=== PATIENT | female | born 1975 | race Caucasian/White ===

== ENCOUNTER 2020-05-26 13:49 | Emergency (ER) | payer OTHER, SELFPAY ==
[2020-05-26] VITALS (17 sets, daily range): BP systolic 97–131; BP diastolic 53–69; PULSE 58–82; RESP 11–20; TEMP 36.6–36.8; O2SAT 94–98
--- NOTE | 2020-05-26 13:45 | RT.EKG_ITS ---
APPROVED REPORT Exam: Resting ECG Patient Location: E HR:77 bpm ECG Measurements Heart Rate 77 AXIS MD 143 P 84 QRSd 85 QRS 86 QT 362 T 45 QTc 411 <Conclusion> Sinus rhythm...normal P axis, V-rate 60- 99 I have reviewed and interpreted ECG and agree with software generated interpretation.
--- NOTE | 2020-05-26 14:15 | DI.RAD_ITS ---
EXAM: XR CHEST 2V PA LATERAL CLINICAL HISTORY: Chest pain TECHNIQUE: 2D digital imaging was performed. COMPARISON: No exams were available for comparison FINDINGS: MEDIASTINUM: Normal. HEART: Normal. PULMONARY VASCULATURE: Normal. LUNGS: Clear. PLEURAL SPACE: No pleural effusion or pneumothorax. BONE:Normal. OTHER FINDINGS:Normal. IMPRESSION: No acute pulmonary findings. DATA REPOSITORY: RADIATION DOSE DELIVERED:
--- NOTE | 2020-05-26 14:15 | DI.CT_ITS ---
EXAM: CT BRAIN NECK CTA CLINICAL HISTORY: Left neck pulsating pain, headache, confusion. TECHNIQUE: Imaging Protocol: Axial CT angiography was performed with multi-slice acquisition and mu lti-planar and/or 3D reconstructions. CONTRAST MATERIAL: Intravenous: Omnipaque 350 Contrast volume:structured data in ml COMPARISON: No exams were available for comparison FINDINGS: CT Head W/O: Ventricles and Extra axial spaces: Normal in size and morphology for the patient's age. Hemorrhage: None. Cerebral parenchyma: Normal. Midline shift: None. Brainstem/Cerebellum: Normal. Calvarium: Normal. Visualized Paranasal sinuses/Mastoids: There is a mucous retention cyst or polyp in the left maxillar y sinus. The remaining visualized paranasal sinuses are clear. Soft Tissues: Unremarkable. CTA Brain W: Internal Carotid Arteries: Petrous: Normal. Cavernous: Normal. Cerebral: Normal. Anterior Cerebral Arteries: Right: No aneurysm, occlusion or significant stenosis. Left: No aneurysm, occlusion or significant stenosis. Middle Cerebral Arteries: Right: No aneurysm, occlusion or significant stenosis. Left: No aneurysm, occlusion or significant stenosis. Posterior cerebral Arteries: Right: No aneurysm, occlusion or significant stenosis. Left: No aneurysm, occlusion or significant stenosis. Vertebral Arteries: Right: No aneurysm, occlusion or significant stenosis. Left: No aneurysm, occlusion or significant stenosis. Basilar Artery: No aneurysm, occlusion or significant stenosis. CTA Neck W: Common Carotid: Right: No aneurysm, occlusion or significant stenosis. Left: No aneurysm, occlusion or significant stenosis. External Carotid: Right: No aneurysm, occlusion or significant stenosis. Left: No aneurysm, occlusion or significant stenosis. Internal Carotid: Right: No aneurysm, occlusion or significant stenosis. Left: No aneurysm, occlusion or significant stenosis. Vertebral Artery: Right: No aneurysm, occlusion or significant stenosis. Left: No aneurysm, occlusion or significant stenosis. Lung Apices: Centrilobular emphysematous changes are seen in the lung apices. Dependent atelectasis i s seen. Bones: Normal. Soft Tissues: Normal. IMPRESSION: 1. Normal CTA examination of the [place] [facility] [place]. 2. Unremarkable noncontrast CT Head. 3. Normal CTA examination of the neck. RADIATION DOSE DELIVERED: Total DLP DATA REPOSITORY: All CT scans at this facility are submitted to the National Radiology Data Registry (NRDR) Dose Index Registry (DIR) with the [employer] (A[employer]). RADIATION OPTIMIZATION: All CT scans at this facility use at least one of these dose optimization te chniques: automated exposure control; mA and/or kV adjustment per patient size (includes targeted exa ms where dose is matched to clinical indication); or iterative reconstruction.
[2020-05-26 14:32] LABS: Abs Immature Grans 0.02 k/cumm (0.0-0.09); Absolute Basophil Count 0.02 k/cumm (0.0-0.2); Absolute Lymphocyte Count 2.63 k/cumm (1.2-3.4); Absolute Monocyte Count 0.66 k/cumm (0.11-0.7); Absolute Neutrophil Count 5.25 k/cumm (1.2-6.7); Basophils % 0.2; Eosinophils % 2.3; HCT 40.7 % (36.0-46.0); HGB 13.8 g/dL (12.0-15.5); Immature Grans % 0.2 %; Mean Corp. HGB Concentration 33.9 g/dL (32.0-36.0); Mean Corpuscular Hemoglobin 30.5 pg (27.0-33.0); Mean Platelet Volume 10.3 fL (8.0-11.0); Monocytes % 7.5; Neutrophils % 59.8; Platelet Count 242 x1000/uL (130-400); RBC 4.52 m/cumm (4.00-5.20); RBC Distribution Width 12.5 % (11.7-14.6); White Blood Cell Count 8.78 k/cumm (4.4-10.8)
--- NOTE | 2020-05-26 14:37 | ED.GENADUL_ITS ---
Discharge Plan Disposition Patient Disposition: HOME Condition: Good Discharge Details Chief Complaint: GenMedical Clinical Impression: Acute neck pain, Fatigue, Joint pain Primary Care Provider: Unknown,Unknown ED Provider: Meseret Silvestre Home Meds and New Rx's Prescriptions: No Action No Known Home Meds RF: 0 Discharge Instructions Instructions: Fatigue (ED), Neck Pain (ED) Additional Instructions: Encourage water intake. You may use Tylenol and ibuprofen as needed for discomfort. Warm or cold compresses may also be of benefit. We will contact you with any positive results from your pending tick and Lyme tests. Your imaging and labs were all very reassuring today. I would like you to follow-up closely with your primary care, please call tomorrow to schedule follow-up appointment. If he develops any new or worsening symptoms please seek care urgently once again. Discharge Data Discharge Date/Time-TO BE ENTERED AT DEPARTURE: 05/26/20 18:30 Medical Decision Making <REYNA Monae - Last Filed: 05/27/20 08:02> 45-year-old female with a history of fibromyalgia, PTSD, current smoker, presents with left sided anterior neck pain, throbbing associated with discomfort into her jaw, chest and a global headache. She reports that she feels altered or confused. Denies recent illness or trauma. She appears well, nontoxic. Dentition and throat are unremarkable. Certainly has point tenderness to the location on her neck otherwise her work-up is unremarkable. Very well simply could be a swollen lymph node but given the exquisite tenderness certainly cannot rule out many other etiologies. I did discuss the case with Dr. Childers. Differential is certainly broad at the moment including carotid dissection, intracranial hemorrhage, infectious process, tickborne disease, atypical chest pain, PE, etc. Will initiate a cardiac work-up and obtain CTA head and neck as well as a chest x-ray. Will give 1 L IV fluid. Discussed work-up with patient, she is comfortable with this plan Initial labs have been unremarkable, white count of 8.78 hemoglobin 13.8 hematocrit 40.7 platelet count 242. Coags unremarkable, dimer of 262, electrolytes unremarkable. Creatinine 0.79 with a GFR greater than 60. AST 11 ALT 13 urinalysis and drug screen unremarkable. Troponin and imaging pending Troponin less than 0.05. Imaging still pending. Lab Data Lab results reviewed: Yes I reviewed the patient's lab results. Lab results narrative: Laboratory Tests Range/Units 05/26/20 05/26/20 05/26/20 04:20 14:20 14:20 WBC (4.4-10.8) k/cumm 8.78 RBC (4.00-5.20) m/cumm 4.52 Hgb (12.0-15.5) g/dL 13.8 Hct (36.0-46.0) % 40.7 MCV (80-95) fL 90.0 MCH (27.0-33.0) pg 30.5 MCHC (32.0-36.0) g/dL 33.9 RDW (11.7-14.6) % 12.5 Plt Count (130-400) x1000/uL 242 MPV (8.0-11.0) fL 10.3 Immature Gran % % 0.2 Neutrophils % 59.8 Lymphocytes % 30.0 Monocytes % 7.5 Eosinophils % 2.3 Basophils % 0.2 Absolute Neutrophils (1.2-6.7) k/cumm 5.25 Absolute Lymphocytes (1.2-3.4) k/cumm 2.63 Absolute Monocytes (0.11-0.7) k/cumm 0.66 Absolute Eosinophils (0.0-0.7) k/cumm 0.20 Absolute Basophils (0.0-0.2) k/cumm 0.02 PT (9.3-11.0) sec INR (0.9-1.1) APTT (21.0-31.4) sec D-Dimer (<500) ng/mlFEU Sodium (136-145) mmol/L 139 Potassium (3.5-5.1) mmol/L 3.8 Chloride (98-107) mmol/L 104 Carbon Dioxide (21.0-32.0) mmol/L 27.1 Anion Gap (3-11) mmol/L 7.9 BUN (7-18) mg/dL 16 Creatinine (0.55-1.02) mg/dL 0.79 Estimated GFR/1.73 m2 (mL/min/1.73m2) >= 60.00 Glucose (74-106) mg/dL 106 Calcium (8.5-10.1) mg/dL 9.0 Magnesium (1.8-2.4) mg/dL 2.1 Total Bilirubin (0.2-1.0) mg/dL 0.5 AST (15-37) U/L 11 L ALT (14-59) U/L 13 L Alkaline Phosphatase (46-116) U/L 69 Troponin I (<0.06) ng/mL < 0.05 Total Protein (6.4-8.2) g/dL 7.7 Albumin (3.4-5.0) g/dL 4.0 Lipase (73-393) U/L Urine Color (Yellow) Urine Clarity (Clear) Urine pH (5-8) Ur Specific [place] (1.005-1.025) Urine Protein (Negative) mg/dL Urine Ketones (Negative) mg/dL Urine Blood (Negative) Urine Nitrite (Negative) Urine Bilirubin (Negative) Urine Urobilinogen (Up TO 0.2) EU/dL Ur Leukocyte Esterase (Negative) Urine Glucose (Negative) mg/dL Urine Opiates Screen (Negative) Urine Methadone Screen (Negative) Ur Barbiturates Screen (Negative) Ur Tricyclics Screen (Negative) Ur Amphetamines Screen (Negative) U Benzodiazepines Scrn (Negative) Urine Cocaine Screen (Negative) Ur THC Screen (Negative) Monoscreen (Negative) Negative Range/Units 05/26/20 05/26/20 05/26/20 14:20 14:20 14:50 WBC (4.4-10.8) k/cumm RBC (4.00-5.20) m/cumm Hgb (12.0-15.5) g/dL Hct (36.0-46.0) % MCV (80-95) fL MCH (27.0-33.0) pg MCHC (32.0-36.0) g/dL RDW (11.7-14.6) % Plt Count (130-400) x1000/uL MPV (8.0-11.0) fL Immature Gran % % Neutrophils % Lymphocytes % Monocytes % Eosinophils % Basophils % Absolute Neutrophils (1.2-6.7) k/cumm Absolute Lymphocytes (1.2-3.4) k/cumm Absolute Monocytes (0.11-0.7) k/cumm Absolute Eosinophils (0.0-0.7) k/cumm Absolute Basophils (0.0-0.2) k/cumm PT (9.3-11.0) sec 10.0 INR (0.9-1.1) 1.0 APTT (21.0-31.4) sec 27.2 D-Dimer (<500) ng/mlFEU 262 Sodium (136-145) mmol/L Potassium (3.5-5.1) mmol/L Chloride (98-107) mmol/L Carbon Dioxide (21.0-32.0) mmol/L Anion Gap (3-11) mmol/L BUN (7-18) mg/dL Creatinine (0.55-1.02) mg/dL Estimated GFR/1.73 m2 (mL/min/1.73m2) Glucose (74-106) mg/dL Calcium (8.5-10.1) mg/dL Magnesium (1.8-2.4) mg/dL Total Bilirubin (0.2-1.0) mg/dL AST (15-37) U/L ALT (14-59) U/L Alkaline Phosphatase (46-116) U/L Troponin I (<0.06) ng/mL Total Protein (6.4-8.2) g/dL Albumin (3.4-5.0) g/dL Lipase (73-393) U/L 92 Urine Color (Yellow) Urine Clarity (Clear) Urine pH (5-8) Ur Specific [place] (1.005-1.025) Urine Protein (Negative) mg/dL Urine Ketones (Negative) mg/dL Urine Blood (Negative) Urine Nitrite (Negative) Urine Bilirubin (Negative) Urine Urobilinogen (Up TO 0.2) EU/dL Ur Leukocyte Esterase (Negative) Urine Glucose (Negative) mg/dL Urine Opiates Screen (Negative) Negative Urine Methadone Screen (Negative) Negative Ur Barbiturates Screen (Negative) Negative Ur Tricyclics Screen (Negative) Negative Ur Amphetamines Screen (Negative) Negative U Benzodiazepines Scrn (Negative) Negative Urine Cocaine Screen (Negative) Negative Ur THC Screen (Negative) Negative Monoscreen (Negative) Range/Units 05/26/20 14:50 WBC (4.4-10.8) k/cumm RBC (4.00-5.20) m/cumm Hgb (12.0-15.5) g/dL Hct (36.0-46.0) % MCV (80-95) fL MCH (27.0-33.0) pg MCHC (32.0-36.0) g/dL RDW (11.7-14.6) % Plt Count (130-400) x1000/uL MPV (8.0-11.0) fL Immature Gran % % Neutrophils % Lymphocytes % Monocytes % Eosinophils % Basophils % Absolute Neutrophils (1.2-6.7) k/cumm Absolute Lymphocytes (1.2-3.4) k/cumm Absolute Monocytes (0.11-0.7) k/cumm Absolute Eosinophils (0.0-0.7) k/cumm Absolute Basophils (0.0-0.2) k/cumm PT (9.3-11.0) sec INR (0.9-1.1) APTT (21.0-31.4) sec D-Dimer (<500) ng/mlFEU Sodium (136-145) mmol/L Potassium (3.5-5.1) mmol/L Chloride (98-107) mmol/L Carbon Dioxide (21.0-32.0) mmol/L Anion Gap (3-11) mmol/L BUN (7-18) mg/dL Creatinine (0.55-1.02) mg/dL Estimated GFR/1.73 m2 (mL/min/1.73m2) Glucose (74-106) mg/dL Calcium (8.5-10.1) mg/dL Magnesium (1.8-2.4) mg/dL Total Bilirubin (0.2-1.0) mg/dL AST (15-37) U/L ALT (14-59) U/L Alkaline Phosphatase (46-116) U/L Troponin I (<0.06) ng/mL Total Protein (6.4-8.2) g/dL Albumin (3.4-5.0) g/dL Lipase (73-393) U/L Urine Color (Yellow) Yellow Urine Clarity (Clear) Clear Urine pH (5-8) 6.0 Ur Specific [place] (1.005-1.025) >= 1.030 H Urine Protein (Negative) mg/dL Negative Urine Ketones (Negative) mg/dL Negative Urine Blood (Negative) Negative Urine Nitrite (Negative) Negative Urine Bilirubin (Negative) Negative Urine Urobilinogen (Up TO 0.2) EU/dL 0.2 Ur Leukocyte Esterase (Negative) Negative Urine Glucose (Negative) mg/dL Negative Urine Opiates Screen (Negative) Urine Methadone Screen (Negative) Ur Barbiturates Screen (Negative) Ur Tricyclics Screen (Negative) Ur Amphetamines Screen (Negative) U Benzodiazepines Scrn (Negative) Urine Cocaine Screen (Negative) Ur THC Screen (Negative) Monoscreen (Negative) ECG Data Attestation: I personally reviewed and interpreted this ECG (s) as follows: Interpretation: EKG performed at 1400, reviewed and interpreted with Dr. Childers. Sinus rhythm, ventricular of 77, no STEMI. Please see her official reports <REYNA Sales - Last Filed: 05/26/20 20:30> Care transition myself with imaging and repeat troponin pending. In brief, patient is a 45-year-old female with past medical history significant for fibromyalgia, PTSD and current smoker presenting for evaluation of left-sided n danyell pain. Her initial chief complaint was his neck pain that was throbbing. Patient also reports that she has disseminated joint pain, fatigue, chest pain, headache all that began upon awakening Tuesday morning. Please see his initial note for initial presentation, exam and work-up thus far. Labs completed without significant abnormality. This includes a leukocytosis, stable H&H, no electrolyte abnormalities, normal coags, negative Monospot, normal initial troponin, normal lipase and no abnormalities in the UDS or UA. Tick and Lyme panel pending. CXR reviewed by radiologist: FINDINGS: Lungs: Clear lungs. Pleural space: No pneumothorax. No sizeable effusion. Heart/Mediastinum: Cardiomediastinal silhouette is within normal limits. Bones/joints: No acute displaced fracture or dislocation. IMPRESSION: No acute cardiopulmonary process. CT reviewed by radiologist: FINDINGS: Anterior cerebral arteries are widely patent. Middle cerebral arteries are widely patent. Posterior cerebral arteries are widely patent. No evidence of aneurysm or dissection. Mild carotid siphon calcifications. Basilar artery is widely patent. No evidence of aneurysm or dissection. Right common, internal, and external carotid arteries are widely patent. Left common, external, and internal carotid arteries are widely patent. No evidence of aneurysm or dissection. Left vertebral artery is dominant. The left vertebral artery is widely patent. No evidence of aneurysm or dissection. The right vertebral artery is widely patent. No evidence of aneurysm or dissection. Limited evaluation of the venous structures however major dural venous sinuses as well as both jugular veins appear patent. No acute intracranial hemorrhage, mass, or infarct. Intact globes and orbits. Mucous retention cyst left maxillary sinus. Emphysematous changes both lungs. Periapical scarring. Scattered areas of atelectasis. Note that evaluation of the lung parenchyma is limited secondary to motion. Dental hardware. Visualized vertebral bodies demonstrate normal height and alignment. No acute bony findings identified. Multiple prominent cervical nodes are nonspecific but may be reactive. Impression: Widely patent arterial vasculature without evidence of aneurysm, occlusion, or hemodynamically significant stenosis. No acute intracranial process. FINDINGS: Anterior cerebral arteries are widely patent. Middle cerebral arteries are widely patent. Posterior cerebral arteries are widely patent. No evidence of aneurysm or dissection. Mild carotid siphon calcifications. Basilar artery is widely patent. No evidence of aneurysm or dissection. Right common, internal, and external carotid arteries are widely patent. Left common, external, and internal carotid arteries are widely patent. No evidence of aneurysm or dissection. Left vertebral artery is dominant. The left vertebral artery is widely patent. No evidence of aneurysm or dissection. The right vertebral artery is widely patent. No evidence of aneurysm or dissecti on. Limited evaluation of the venous structures however major dural venous sinuses as well as both jugular veins appear patent. No acute intracranial hemorrhage, mass, or infarct. Intact globes and orbits. Mucous retention cyst left maxillary sinus. Emphysematous changes both lungs. Periapical scarring. Scattered areas of atelectasis. Note that evaluation of the lung parenchyma is limited secondary to motion. Dental hardware. Visualized vertebral bodies demonstrate normal height and alignment. No acute bony findings identified. Multiple prominent cervical nodes are nonspecific but may be reactive. Impression: Widely patent arterial vasculature without evidence of aneurysm, occlusion, or hemodynamically significant stenosis. No acute intracranial process. Discussed this findings with the patient. Patient's repeat troponin less than 0.05. Repeat EKG was by Dr. Childers without change from previous. Patient discussed potential causes of her discomfort. n thus far, her exam has been reas suring. However, her tick and Lyme panel are pending. We will contact her with any positive results. Patient does have a history of fibromyalgia and states that she has had fibromyalgia flareup historically and that that is what this could be as well. She states is been several years since her previous. I did encourage close follow-up with primary care. She will contact them tomorrow to schedule appointment. She was given return precautions. All of her questions and concerns were addressed and she is in agreement this plan. HPI <REYNA Monae - Last Filed: 05/27/20 08:02> General Mode of arrival: ambulatory . Date/Time Provider Initiated Documentation: 05/26/20 13:56 . Limitations to Documentation: no limitations . Information obtained by: patient . HPI Narrative: This is a 45-year-old female who reports a history of PTSD, fibromyalgia, current quarter-half pack cigarettes smoker daily, presents with 2-3-day history of left-sided neck pulsating pressure-pain which is moderate in nature and severe to palpation. She reports a dull global headache slightly worse on the left side and a vague feeling of confusion. She reports left-sided jaw discomfort associated with intermittent lightheadedness. She reports generalized weakness, fatigue, diffuse muscle pain, joint aching, sweats, unknown fever. She reports diffuse m ild left-sided chest pain but denies cough or shortness of breath. She denies recent illness or trauma. Denies posterior neck pain, numbness, tingling, focal weakness, skin rash, abdominal pain, vomiting, dysuria, hematuria, diarrhea or constipation. Does report mild nausea. Related Data Home Medications Medication Instructions Recorded Confirmed Unknown [No Known Home Meds] 05/26/20 05/26/20 Allergies Allergy/AdvReac Type Severity Reaction Status Date / Time No Known Allergies Allergy Unverified 05/26/20 13:56 General Stated Complaint: GenMedical LALITA: 2 Review of Systems <REYNA Monae - Last Filed: 05/27/20 08:02> Constitutional Constitutional: Reports fatigue, Denies fever(s), Reports headache(s) and Reports weakness (Generalized) Eyes Eyes: Denies change in vision ENT Ears, Nose, Mouth, and Throat: Denies otalgia, Reports headache(s), Reports neck pain and Denies sore throat Cardiovascular Cardiovascular: Reports chest pain, Denies palpitations and Denies dyspnea Respiratory Respiratory: Denies cough and Denies dyspnea Gastrointestinal Gastrointestinal: Denies abdominal pain, Reports nausea and Denies vomiting Genitourinary Genitourinary: Denies dysuria Musculoskeletal Musculoskeletal: Denies back pain, Reports myalgias, Reports arthralgias, Reports neck pain, Denies numbness and Denies tingling Integumentary/Breasts Skin/Breast: Denies rash Neurologic Neurologic: Reports headache(s), Denies numbness, Denies tingling and Reports weakness (Generalized) Endocrine Endocrine: Reports fatigue and Denies palpitations Hematologic/Lymphatic Hematologic/Lymphatic: Denies easy bleeding and Denies easy bruising PFSH <REYNA Monae - Last Filed: 05/27/20 08:02> Social History Smoking/Tobacco Use Status: Current every day Tobacco Type: cigarettes Drug use: Never Substance use type: does not use Do you feel safe at home: Yes Do you feel safe in your relationship?: Yes Exam <REYNA Monae - Last Filed: 05/27/20 08:02> Const General: cooperative, healthy appearing, comfortable and no acute distress Orientation: alert, awake and oriented x3 HENMT Head: normal to inspection, no palpable skull fracture, normocephalic and atraumatic Ears: external ears normal, TM's normal bilaterally and EAC's normal General nose exam: external nose normal Face and sinus: normal facial exam Mouth: oral mucosae normal and moist mucous membranes Teeth and gingiva: dentition normal Throat: posterior oropharynx normal Eyes General: appearance normal, both eyes and all related structures Alignment and Position: alignment normal Periorbital: periorbital findings normal Eyelids: eyelids normal Conjunctivae: conjunctivae normal Sclera: sclerae normal Cornea: corneas normal Pupils: PERRL EOM: EOM intact bilaterally Direct ophthalmoscopy: normal light reflex Neck Neck: normal visual inspection, full ROM, no meningeal signs, trachea midline, supple and tender (Left anterior to the sternocleidomastoid, point tenderness) Chest Chest: normal inspection of the chest, no crepitus and tenderness (Left lateral lower ribs diffusely) Resp Effort & Inspection: normal respiratory effort and able to speak in complete sentences Auscultation: clear to auscultation bilaterally Cardio Rate: regular rate Rhythm: regular rhythm GI Inspection: normal to inspection Palpation: soft, not firm, no guarding and nontender Auscultation: normal bowel sounds Back/Spine/Pelvis Back: No back tenderness Skin General skin exam: no rashes or lesions noted Neuro General: patient alert, patient awake, patient oriented x3, moves all extremities and no focal motor deficits Cranial Nerves: CN's II-XI intact bilaterally Cognition: normal cognition Speech: speech normal Gait: normal gait Motor: muscle tone normal throughout and strength 5/5 throughout Sensory Exam: no sensory deficits noted Extrem General: normal to inspection, full ROM, capillary refill normal, no pedal edema and no calf tenderness Psych Appearance: grossly normal Mental Status: mental status grossly normal Course <REYNA Monae - Last Filed: 05/27/20 08:02> Vital Signs Vital signs: Vital Signs Temperature 36.8 C 05/26/20 13:56 Pulse 79 05/26/20 13:56 Respiratory Rate 19 05/26/20 13:56 Blood Pressure 131/65 05/26/20 13:56 Pulse Oximetry 97 05/26/20 13:56 Temperature 36.8 C 05/26/20 13:56 Temperature Source Temporal Artery Scan 05/26/20 13:56 Pulse 79 05/26/20 13:56 Respiratory Rate 18 05/26/20 14:08 Respiratory Effort 05/26/20 14:08 Respiratory Depth Normal 05/26/20 14:08 Blood Pressure 131/65 05/26/20 13:56 Blood Pressure Position Supine 05/26/20 13:56 Pulse Oximetry 97 05/26/20 13:56 Oxygen Delivery Method Room Air 05/26/20 13:56 Oxygen Flow Rate 0 05/26/20 13:56 Pain Level 4 05/26/20 13:56 Lab/Test Results Lab/Test Results: Laboratory Tests Range/Units 05/26/20 14:20 WBC (4.4-10.8) k/cumm 8.78 RBC (4.00-5.20) m/cumm 4.52 Hgb (12.0-15.5) g/dL 13.8 Hct (36.0-46.0) % 40.7 MCV (80-95) fL 90.0 MCH (27.0-33.0) pg 30.5 MCHC (32.0-36.0) g/dL 33.9 RDW (11.7-14.6) % 12.5 Plt Count (130-400) x1000/uL 242 MPV (8.0-11.0) fL 10.3 Immature Gran % % 0.2 Neutrophils % 59.8 Lymphocytes % 30.0 Monocytes % 7.5 Eosinophils % 2.3 Basophils % 0.2 Absolute Neutrophils (1.2-6.7) k/cumm 5.25 Absolute Lymphocytes (1.2-3.4) k/cumm 2.63 Absolute Monocytes (0.11-0.7) k/cumm 0.66 Absolute Eosinophils (0.0-0.7) k/cumm 0.20 Absolute Basophils (0.0-0.2) k/cumm 0.02 Sign Out <REYNA Monae - Last Filed: 05/27/20 08:02> Sign Out Data: Sign Out Comment: Laboratory values thus far unremarkable. Patient is currently at imaging for CTA of head, neck, CT of head, chest x-ray. Will need reevaluation and if initial work-up is unremarkable likely repeat troponin and EKG in 3 hours. May try Toradol if initial work-up is unremarkable to see if we can get any analgesia. Last updated by Mauro Hunt PA at 05/26/20 16:02
[2020-05-26 14:43] LABS: PTT Activated 27.2 sec (21.0-31.4)
[2020-05-26 14:44] LABS: ALT 13 U/L (14-59); AST 11 U/L (15-37); Alkaline Phosphatase 69 U/L (46-116); Anion Gap 7.9 mmol/L (3-11); BUN 16 mg/dL (7-18); Bilirubin, Total 0.5 mg/dL (0.2-1.0); CO2 27.1 mmol/L (21.0-32.0); CREATININE 0.79 mg/dL (0.55-1.02); Chloride 104 mmol/L (98-107); Glucose 106 mg/dL (74-106); Magnesium 2.1 mg/dL (1.8-2.4); Potassium 3.8 mmol/L (3.5-5.1); Sodium 139 mmol/L (136-145); Total Protein 7.7 g/dL (6.4-8.2)
[2020-05-26] MEDS: Normal Saline 1,000 ML 1000 ML IV (14:46)
[2020-05-26 14:47] LABS: Troponin I < 0.05 ng/mL (<0.06)
[2020-05-26 14:59] LABS: D-Dimer 262 ng/mlFEU (<500)
[2020-05-26 15:03] LABS: Bilirubin Negative (Negative); Blood Negative (Negative); Clarity Clear (Clear); Glucose Negative (Negative); Ketones Negative (Negative); Leukocyte Esterase Negative (Negative); Nitrite Negative (Negative); Specific Gravity >= 1.030 (1.005-1.025); Urobilinogen 0.2 EU/dL (Up TO 0.2)
[2020-05-26 15:07] LABS: Lipase 92 U/L (73-393)
[2020-05-26 15:15] LABS: *AMPHETAMINES SCREEN URINE Negative (Negative); *BARBITURATES SCREEN URINE Negative (Negative); *BENZODIAZEPINES SCREEN URINE Negative (Negative); Cannabinoids THC Negative (Negative); Cocaine Screen,Urine Negative (Negative); METHADONE URINE SCREEN Negative (Negative); OPIATES URINE SCREEN Negative (Negative)
[2020-05-26 15:16] LABS: Tricyclic Antidepressants Negative (Negative)
[2020-05-26 15:32] LABS: Mono Screening Negative (Negative)
[2020-05-26] MEDS: Omnipaque 350 MG/ML 100 ML BTL IV (15:57)
--- NOTE | 2020-05-26 16:08 | DI.VRAD_ITS ---
PROCEDURE INFORMATION: Exam: XR Chest, 2 Views Exam date and time: 05/26/2020 3:59 PM Age: 45 years old Clinical indication: Other: Chest pain TECHNIQUE: Imaging protocol: XR of the chest Views: 2 views. COMPARISON: No relevant images were readily available for comparison purposes. FINDINGS: Lungs: Clear lungs. Pleural space: No pneumothorax. No sizeable effusion. Heart/Mediastinum: Cardiomediastinal silhouette is within normal limits. Bones/joints: No acute displaced fracture or dislocation. IMPRESSION: No acute cardiopulmonary process. Dictated and Authenticated by: Srinath Dickey MD. Ordering:LENARD Wade MD
--- NOTE | 2020-05-26 16:43 | DI.VRAD_ITS ---
PROCEDURE INFORMATION: Exam: CT Angiography Head With Contrast Exam date and time: 05/26/2020 3:56 PM Age: 45 years old Clinical indication: Other: Left neck pulsating pain, headache, confusion TECHNIQUE: Imaging protocol: Computed tomography angiography of the head with intravenous contrast. 3D rendering: MIP and/or 3D reconstructed images were created by the technologist. Contrast material: 0MNIPQUE 350; Contrast volume: 85 ml; Contrast route: INTRAVENOUS (IV); COMPARISON: No relevant images were readily available for comparison purposes. FINDINGS: Anterior cerebral arteries are widely patent. Middle cerebral arteries are widely patent. Posterior cerebral arteries are widely patent. No evidence of aneurysm or dissection. Mild carotid siphon calcifications. Basilar artery is widely patent. No evidence of aneurysm or dissection. Right common, internal, and external carotid arteries are widely patent. Left common, external, and internal carotid arteries are widely patent. No evidence of aneurysm or dissection. Left vertebral artery is dominant. The left vertebral artery is widely patent. No evidence of aneurysm or dissection. The right vertebral artery is widely patent. No evidence of aneurysm or dissection. Limited evaluation of the venous structures however major dural venous sinuses as well as both jugular veins appear patent. No acute intracranial hemorrhage, mass, or infarct. Intact globes and orbits. Mucous retention cyst left maxillary sinus. Emphysematous changes both lungs. Periapical scarring. Scattered areas of atelectasis. Note that evaluation of the lung parenchyma is limited secondary to motion. Dental hardware. Visualized vertebral bodies demonstrate normal height and alignment. No acute bony findings identified. Multiple prominent cervical nodes are nonspecific but may be reactive. Impression: Widely patent arterial vasculature without evidence of aneurysm, occlusion, or hemodynamically significant stenosis. No acute intracranial process. PROCEDURE INFORMATION: Exam: CT Angiography Neck With Contrast Exam date and time: 05/26/2020 3:56 PM Age: 45 years old Clinical indication: Other: Left neck pulsating pain, headache, confusion TECHNIQUE: Imaging protocol: Computed tomography angiography of the neck with intravenous contrast. 3D rendering: MIP and/or 3D reconstructed images were created by the technologist. Radiation optimization: All CT scans at this facility use at least one of these dose optimization techniques: automated exposure control; mA and/or kV adjustment per patient size (includes targeted exams where dose is matched to clinical indication); or iterative reconstruction. Contrast material: 0MNIPQUE 350; Contrast volume: 85 ml; Contrast route: INTRAVENOUS (IV); COMPARISON: No relevant images were readily available for comparison purposes. FINDINGS: Anterior cerebral arteries are widely patent. Middle cerebral arteries are widely patent. Posterior cerebral arteries are widely patent. No evidence of aneurysm or dissection. Mild carotid siphon calcifications. Basilar artery is widely patent. No evidence of aneurysm or dissection. Right common, internal, and external carotid arteries are widely patent. Left common, external, and internal carotid arteries are widely patent. No evidence of aneurysm or dissection. Left vertebral artery is dominant. The left vertebral artery is widely patent. No evidence of aneurysm or dissection. The right vertebral artery is widely patent. No evidence of aneurysm or dissection. Limited evaluation of the venous structures however major dural venous sinuses as well as both jugular veins appear patent. No acute intracranial hemorrhage, mass, or infarct. Intact globes and orbits. Mucous retention cyst left maxillary sinus. Emphysematous changes both lungs. Periapical scarring. Scattered areas of atelectasis. Note that evaluation of the lung parenchyma is limited secondary to motion. Dental hardware. Visualized vertebral bodies demonstrate normal height and alignment. No acute bony findings identified. Multiple prominent cervical nodes are nonspecific but may be reactive. Impression: Widely patent arterial vasculature without evidence of aneurysm, occlusion, or hemodynamically significant stenosis. No acute intracranial process. Dictated and Authenticated by: Srinath Dickey MD. Ordering:LENARD Wade MD
--- NOTE | 2020-05-26 17:15 | RT.EKG_ITS ---
APPROVED REPORT Exam: Resting ECG Patient Location: E HR:59 bpm ECG Measurements Heart Rate 59 AXIS VT 146 P 60 QRSd 88 QRS 73 QT 408 T 49 QTc 406 <Conclusion> Sinus bradycardia...rate< 60 Low voltage, precordial leads...precordial leads <1.0mV Normal Electrocardiogram
[2020-05-26 17:39] LABS: Troponin I < 0.05 ng/mL (<0.06)
[2020-05-27 10:34] LABS: Lyme Ab w Rflx to Lyme Confirm Negative (Negative)
[2020-05-28 23:06] LABS: Anaplasma phagocytophilum Negative (Negative); B. miyamotoi PCR Negative (Negative); Babesia divergens/MO-1 Negative (Negative); Babesia duncani Negative (Negative); Babesia microti Negative (Negative); Ehrlichia chaffeensis Negative (Negative); Ehrlichia ewingii/canis Negative (Negative); Ehrlichia muris eauclairensis Negative (Negative)
== END 2020-05-26 18:30 | disposition home or self-care (01) ==
PROVIDERS: Physician Assistant; Emergency Provider Physician Assistant
DX: M54.2 Cervicalgia (principal); R53.83 Other fatigue; R53.1 Weakness; R07.9 Chest pain, unspecified; M25.50 Pain in unspecified joint; F17.210 Nicotine dependence, cigarettes, uncomplicated
CPT/HCPCS: 70496; 70498; 80053; 80307; 81025; 83690; 87798; 93005; 96360; 99285; 71046; 81003; 83735; 84484; 85025; 85379; 85610; 85730; 86308; 86618; 93010; 99284; J3490

== ENCOUNTER 2023-09-08 17:30 | Emergency (ER) | payer OTHER, SELFPAY ==
--- NOTE | 2023-09-08 17:30 | RT.EKG_ITS ---
APPROVED REPORT Exam: Resting ECG Reason for Exam: chest pain Patient Location: E HR:72 bpm ECG Measurements Heart Rate [address] 143 P 69 QRSd 88 QRS 73 QT 380 T 54 QTc 418 Conclusion Sinus rhythm...normal P axis, V-rate 60- 99 Low voltage, precordial leads...precordial leads <1.0mV Physician: no stemi, inverted t waves in V1 and V2, but no elevation or depression. unchanged from p rior EKG
[2023-09-08 17:42] VITALS: BP 147/88; PULSE 84; RESP 18; TEMP 37; O2SAT 98
[2023-09-08 17:57] VITALS: RESP 16
--- NOTE | 2023-09-08 18:00 | DI.RAD_ITS ---
Exam(s) XR CHEST 2V PA LATERAL EXAM: XR CHEST 2V PA LATERAL CLINICAL HISTORY: chest pain TECHNIQUE: 2D digital imaging was performed. COMPARISON: CR,XR XR CHEST 2V PA LATERAL from 05/26/2020 FINDINGS: HEART: Normal size. Aorta: Not dilated. PULMONARY VASCULATURE: Normal. LUNGS: Clear. PLEURAL SPACE: No pleural effusion or pneumothorax. BONE:Unremarkable for age. IMPRESSION: No acute abnormality. DATA REPOSITORY: RADIATION DOSE DELIVERED:
[2023-09-08 18:19] LABS: Abs Immature Grans 0.02 10^3/uL (0.0-0.06); Absolute Basophil Count 0.03 10^3/uL (0.0-0.2); Absolute Eosinophil Count 0.21 10^3/uL (0.0-0.7); Absolute Lymphocyte Count 2.61 10^3/uL (1.2-3.4); Absolute Monocyte Count 0.65 10^3/uL (0.1-0.8); Absolute Neutrophil Count 3.98 10^3/uL (1.2-6.7); Basophils % 0.4; Eosinophils % 2.8; HCT 37.4 % (36.0-46.0); HGB 12.5 g/dL (11.2-15.7); Immature Grans % 0.3; Lymphocytes % 34.8; MCH 28.9 pg (27.0-33.0); MCHC 33.4 % (32.0-36.0); MCV 87 fL (80-95); MPV 9.3 fL (8.0-11.0); Monocytes % 8.7; Platelet Count 263 10^3/uL (130-400); RBC 4.32 10^6/uL (3.93-5.22); RDW 11.4 % (11.7-14.6); RDW-SD 36.6 fL
[2023-09-08 18:39] LABS: ALT 17 U/L (14-59); AST 12 U/L (15-37); Alkaline Phosphatase 82 U/L (46-116); Anion Gap 9.3 mmol/L (3-11); BUN 18 mg/dL (7-18); Bilirubin, Total 0.3 mg/dL (0.2-1.0); CO2 25.7 mmol/L (21.0-32.0); CREATININE 1.1 mg/dL (0.55-1.02); Calcium 9.3 mg/dL (8.5-10.1); Chloride 101 mmol/L (98-107); Estimated GFR 62.76 (mL/min/1.73m2); Glucose 103 mg/dL (74-106); Magnesium 2.3 mg/dL (1.8-2.4); Potassium 3.8 mmol/L (3.5-5.1); Sodium 136 mmol/L (136-145); Total Protein 7.8 g/dL (6.4-8.2)
[2023-09-08 18:50] LABS: TSH (W/Ref FT4) 1.39 uIU/mL (0.36-3.74); Troponin I < 50 ng/L (<or=60)
--- NOTE | 2023-09-08 20:20 | ED.GENADUL_ITS ---
Discharge Plan Disposition Patient Disposition: Home Condition: Stable Discharge Details Clinical Impression: Chest pain Primary Care Provider: DOT WEINSTEIN ED Provider: Lacie Blue Home Meds and New Rx's Prescriptions: No Action No Known Home Meds Discharge Instructions Instructions: Chest Pain (ED) Additional Instructions: Please follow-up with your primary care physician You may take ibuprofen and Tylenol as needed for pain Return earlier should you have new or worsening complaints, your tests today are reassuring Referrals: DOT WEINSTEIN MD [Primary Care Provider] - Medical Decision Making Otherwise healthy 48-year-old female presents with left chest pain EKG does not show acute change from prior Troponins x2 negative, encouraged tobacco cessation, heart score of 3 Atypical chest pain Chest x-ray per radiology interpretation and my review does not show evidence of acute abnormality Recommendation for patient to follow-up with her primary care physician and outpatient stress test at their discretion Her exam today is reassuring, vitals are stable Return precautions reviewed and patient expressed understanding I did consider pulmonary embolism, however patient has pulmonary embolism rule out criteria negative and Wells criteria negative HPI General Date/Time Provider Initiated Documentation: 09/08/23 17:49 . HPI Narrative: 48-year-old female presenting with chest pain intermittently for the past 3 days, nonexertional, denies diaphoresis or nausea. States that last 2 to 3 minutes when it comes on and then resolves on its own. Denies known exacerbating or relieving factors. Denies any calf pain or swelling, recent flights, surgeries, long drives. Denies any rashes or lesions. Denies history of similar symptoms in the past. States the pain is at the top o'clock position on her left breast and radiates up to her shoulder. Denies any additional complaints at this time. Does vape nicotine, recently stopped drinking alcohol 2 weeks ago. Denies any new medications. Denies any illicit drug use. Denies any chance of . Denies exogenous hormones. Denies history of coagulopathy. Related Data Home Medications Medication Instructions Recorded Confirmed Unknown [No Known Home Meds] 05/26/20 05/26/20 Allergies Allergy/AdvReac Type Severity Reaction Status Date / Time duloxetine AdvReac Severe Diarrhea Unverified 09/08/23 17:46 General Stated Complaint: Chest Pain LALITA: 3 PFSH All Active Problems (Updated 09/08/23 @ 21:52 by REYNA Castillo) Chest pain (Acute) Social History Smoking/Tobacco Use Status: Current every day Tobacco Type: e-cigarettes Smoking risk assessment performed?: Yes Alcohol Intake: former Drug use: Never Substance use type: does not use Housing: house Do you feel safe at home: Yes Do you feel safe in your relationship?: Yes Course Vital Signs Vital signs: Vital Signs Temperature 37 C 09/08/23 17:42 Pulse 84 09/08/23 17:42 Respiratory Rate 18 09/08/23 17:42 Blood Pressure 147/88 H 09/08/23 17:42 Pulse Oximetry 98 09/08/23 17:42 Temperature 37 C 09/08/23 17:42 Temperature Source Temporal Artery Scan 09/08/23 17:42 Pulse 84 09/08/23 17:42 Respiratory Rate 16 09/08/23 17:57 Respiratory Effort Normal 09/08/23 17:57 Respiratory Depth Normal 09/08/23 17:57 Respiratory Pattern Normal 09/08/23 17:57 Blood Pressure 147/88 H 09/08/23 17:42 Blood Pressure Position Sitting 09/08/23 17:42 Pulse Oximetry 98 09/08/23 17:42 Oxygen Delivery Method Room Air 09/08/23 17:42 Oxygen Flow Rate 0 09/08/23 17:42 Lab/Test Results Lab/Test Results: Laboratory Tests Range/Units 09/08/23 18:13 WBC (4.4-10.8) 10^3/uL 7.50 RBC (3.93-5.22) 10^6/uL 4.32 Hgb (11.2-15.7) g/dL 12.5 Hct (36.0-46.0) % 37.4 MCV (80-95) fL 87 MCH (27.0-33.0) pg 28.9 MCHC (32.0-36.0) % 33.4 RDW (11.7-14.6) % 11.4 L Plt Count (130-400) 10^3/uL 263 MPV (8.0-11.0) fL 9.3 Immature Gran % 0.3 Neutrophils % 53.0 Lymphocytes % 34.8 Monocytes % 8.7 Eosinophils % 2.8 Basophils % 0.4 Nucleated RBC % (0.0-0.3) % 0.0 Absolute Neutrophils (1.2-6.7) 10^3/uL 3.98 Absolute Lymphocytes (1.2-3.4) 10^3/uL 2.61 Absolute Monocytes (0.1-0.8) 10^3/uL 0.65 Absolute Eosinophils (0.0-0.7) 10^3/uL 0.21 Absolute Basophils (0.0-0.2) 10^3/uL 0.03 Sodium (136-145) mmol/L 136 Potassium (3.5-5.1) mmol/L 3.8 Chloride (98-107) mmol/L 101 Carbon Dioxide (21.0-32.0) mmol/L 25.7 Anion Gap (3-11) mmol/L 9.3 BUN (7-18) mg/dL 18 Creatinine (0.55-1.02) mg/dL 1.1 H Est GFR (CKD-EPI 2020) (mL/min/1.73m2) 62.76 Glucose (74-106) mg/dL 103 Calcium (8.5-10.1) mg/dL 9.3 Magnesium (1.8-2.4) mg/dL 2.3 Total Bilirubin (0.2-1.0) mg/dL 0.3 AST (15-37) U/L 12 L ALT (14-59) U/L 17 Alkaline Phosphatase (46-116) U/L 82 Troponin I (<or=60) ng/L < 50 Total Protein (6.4-8.2) g/dL 7.8 Albumin (3.4-5.0) g/dL 4.0 TSH (0.36-3.74) uIU/mL 1.39
[2023-09-08 21:34] LABS: Troponin I < 50 ng/L (<or=60)
[2023-09-08 21:59] VITALS: BP 119/68; PULSE 78; RESP 18; O2SAT 94
== END 2023-09-08 21:59 | disposition home or self-care (01) ==
PROVIDERS: Emergency Provider Physician Assistant; PCP Nurse Practitioner Primary Care
DX: R07.9 Chest pain, unspecified (principal); R42 Dizziness and giddiness; R11.0 Nausea; F17.290 Nicotine dependence, other tobacco product, uncomplicated
CPT/HCPCS: 80053; 93005; 99283; 71046; 83735; 84443; 84484; 85025; 93010